=== PATIENT | male | born 1990 | race Caucasian/White ===

== ENCOUNTER 2016-06-26 12:48 | Inpatient (IN) | payer MEDICAID ==
[~2016-06-26] VITALS: Ht 167.6 cm; Wt 70.0 kg
[2016-06-26 14:54] LABS: BASOPHILS % (AUTO) 0.5 % (0.0-2.0); EOSINOPHILS % (AUTO) 3.7 % (1.0-6.0); HEMATOCRIT 48.7 % (41-53); HEMOGLOBIN 15.8 g/dL (13.5-17.5); LYMPHOCYTES # (AUTO) 2.1 K/uL (1.0-4.8); LYMPHOCYTES % (AUTO) 21.9 % (22.0-44.0); MEAN CORPUSCULAR HGB CONC 32.4 G/dL (31.0-37.0); MEAN CORPUSCULAR VOLUME 93 fL (80-100); MONOCYTES # (AUTO) 0.7 K/uL (0.1-1.0); NEUTROPHILS # (AUTO) 6.2 K/uL (1.8-7.7); NEUTROPHILS % (AUTO) 65.9 % (40.0-70.0); PLATELET COUNT (AUTO) 242 K/uL (150-450); RED BLOOD CELL COUNT(AUTO) 5.26 MIL/uL (4.50-5.90); RED CELL DISTRIBUTION WIDTH 14.5 % (11.5-14.5); WHITE BLOOD COUNT (AUTO) 9.4 K/uL (4.5-11.0)
[2016-06-26 15:06] LABS: ANION GAP 9 mmol/L (8-16); CALCIUM, TOTAL 8.8 mg/dL (8.8-10.5); CARBON DIOXIDE 29 mmol/L (22-29); CHLORIDE 104 mmol/L (98-107); CREATININE 0.81 mg/dL (0.60-1.30); GLOMERULAR FILTR. RATE CALC > 60 mL/min (>60); POTASSIUM 4.7 mmol/L (3.5-5.1); SODIUM SERUM 142 mmol/L (136-145); UREA NITROGEN, BLOOD 13 mg/dL (7-18)
[2016-06-26 15:11] LABS: ALANINE AMINOTRANSFERASE 24 U/L (12-78); ALBUMIN 3.9 g/dL (3.4-5.0); ASPARTATE AMINOTRANSFERASE 16 U/L (15-37); BILIRUBIN,TOTAL 0.3 mg/dL (0.1-1.0); TOTAL PROTEIN, SERUM 8.3 g/dL (6.4-8.2)
[2016-06-26] MEDS ORDERED: LORazepam 2 MG TABLET PO ONE (18:00)
[2016-06-26] MEDS ORDERED: HALOPERIDOL 5 MG TABLET PO ONE (18:00)
[2016-06-27] MEDS ORDERED: IBUPROFEN 600 MG TABLET PO PRN (08:00)
[2016-06-27] MEDS ORDERED: ONDANSETRON HCL 4 MG TABLET PO PRN (08:00)
[2016-06-27] MEDS ORDERED: ALBUTEROL SULFATE HFA 90 MCG/PUFF 8 GM INHALER IH PRN (08:00)
[2016-06-27] MEDS ORDERED: MAG HYDROX/AL HYDROX/SIMETH ES 30 ML SUSPENSION UDCUP PO PRN (08:00)
[2016-06-27] MEDS ORDERED: CloNIDine HCL 0.1 MG TABLET PO PRN (08:00)
[2016-06-27] MEDS ORDERED: ACETAMINOPHEN 325 MG TABLET PO PRN (08:00)
[2016-06-27] MEDS ORDERED: PETROLATUM,WHITE 71 GM JELLY TP PRN (08:00)
[2016-06-27] MEDS ORDERED: MAGNESIUM HYDROXIDE SUSPENSION 30 ML UDCUP PO PRN (08:00)
[2016-06-27] MEDS ORDERED: BACITRACIN 28.4 GM OINTMENT TP PRN (08:00)
[2016-06-27] MEDS ORDERED: BENZOCAINE/MENTHOL LOZENGE [8 LOZENGES/PACKET] MM PRN (08:00)
[2016-06-27] MEDS ORDERED: LOPERAMIDE HCL 2 MG CAPSULE PO PRN (08:00)
[2016-06-27] MEDS: LORazepam 2 MG TABLET PO PRN (13:35)
[2016-06-27] MEDS: HALOPERIDOL 5 MG TABLET PO PRN (13:35)
[2016-06-27 13:38] VITALS: BP 123/64
[2016-06-27 18:30] VITALS: BP 98/72
[2016-06-28 09:28] VITALS: BP 139/73
[2016-06-28] MEDS: RisperiDONE 3 MG TABLET PO SCH (20:00)
[2016-06-28] MEDS: LORazepam 2 MG TABLET PO PRN (20:00)
[2016-06-28 20:49] LABS: APPEARANCE,URINE CLEAR (CLEAR); GLUCOSE, URINE (UA) NEGATIVE (NEGATIVE); KETONES,URINE NEGATIVE (NEGATIVE); LEUKOCYTE ESTERASE ,URINE NEGATIVE (NEGATIVE); OCCULT BLOOD,URINE NEGATIVE (NEGATIVE); PH,URINE 6.5 (5.0-8.0); PROTEIN,URINE NEGATIVE (NEGATIVE)
[2016-06-28 20:51] LABS: ADD UA MICROSCOPIC NO
[2016-06-28] MEDS: ZOLPIDEM TARTRATE 10 MG TABLET PO PRN (21:31)
[2016-06-28 21:52] VITALS: BP 110/55
[2016-06-29 07:07] LABS: CHOL/HDL RATIO 1.9 (4.2-7.3)
[2016-06-29] MEDS: LORazepam 2 MG TABLET PO PRN ×2 (07:53→16:13)
[2016-06-29 08:01] VITALS: BP 130/83
[2016-06-29] MEDS: DIVALPROEX SODIUM 500 MG DR TABLET PO SCH ×2 (08:02→17:00)
[2016-06-29] MEDS: NICOTINE 21 MG/24 HOUR PATCH TD SCH (08:02)
[2016-06-29] MEDS: RisperiDONE 3 MG TABLET PO SCH ×2 (08:02→20:27)
[2016-06-29] MEDS: HALOPERIDOL 5 MG TABLET PO PRN (16:13)
[2016-06-29 18:12] VITALS: BP 126/76
[2016-06-30 08:02] VITALS: BP 106/67
[2016-06-30] MEDS: DIVALPROEX SODIUM 500 MG DR TABLET PO SCH ×2 (08:19→16:42)
[2016-06-30] MEDS: RisperiDONE 3 MG TABLET PO SCH ×2 (08:19→20:15)
[2016-06-30] MEDS: HALOPERIDOL 5 MG TABLET PO PRN (08:20)
[2016-06-30] MEDS: LORazepam 2 MG TABLET PO PRN (08:20)
[2016-06-30] MEDS: NICOTINE 21 MG/24 HOUR PATCH TD SCH (08:20)
[2016-06-30] MEDS ORDERED: HALOPERIDOL LACTATE 5 MG/ML VIAL IM ONE (08:30)
[2016-06-30] MEDS ORDERED: DiphenhydrAMINE HCL 50 MG/ML VIAL IM ONE (08:30)
[2016-06-30] MEDS ORDERED: LORazepam 2 MG/ML VIAL IM ONE (08:30)
[2016-06-30] MEDS ORDERED: LORazepam 2 MG/ML VIAL ONE (08:34)
[2016-06-30] MEDS ORDERED: DiphenhydrAMINE HCL 50 MG/ML VIAL ONE (08:35)
[2016-06-30] MEDS ORDERED: HALOPERIDOL LACTATE 5 MG/ML VIAL ONE (08:35)
[2016-06-30 18:31] VITALS: BP 122/70
[2016-06-30] MEDS: ZOLPIDEM TARTRATE 10 MG TABLET PO PRN (20:15)
[2016-07-01 08:29] VITALS: BP 116/56
[2016-07-01] MEDS: RisperiDONE 3 MG TABLET PO SCH (08:36)
[2016-07-01] MEDS: DIVALPROEX SODIUM 500 MG DR TABLET PO SCH (08:36)
[2016-07-01] MEDS: NICOTINE 21 MG/24 HOUR PATCH TD SCH (08:37)
[2016-07-01] MEDS ORDERED: DIVA500T35 PO (09:57)
[2016-07-01] MEDS ORDERED: RISP3 PO (09:57)
== END 2016-07-01 10:50 | disposition home or self-care (01) | DRG 751 ==
LOC: EMS 12:51 → AHU 06-27 07:32 → 3EI 06-27 18:29 → 3EC 06-30 09:29
PROVIDERS: ADMIT Psychiatry & Neurology Psychiatry; ATTEND Psychiatry & Neurology Psychiatry
DX: F29 Unspecified psychosis not due to a substance or known physiological condition (principal); R45.851 Suicidal ideations; F15.10 Other stimulant abuse, uncomplicated; F14.90 Cocaine use, unspecified, uncomplicated; F19.10 Other psychoactive substance abuse, uncomplicated; F12.90 Cannabis use, unspecified, uncomplicated; K59.00 Constipation, unspecified; Z79.899 Other long term (current) drug therapy; Z72.89 Other problems related to lifestyle; Z71.41 Alcohol abuse counseling and surveillance of alcoholic; Z71.51 Drug abuse counseling and surveillance of drug abuser; Z81.8 Family history of other mental and behavioral disorders; F17.210 Nicotine dependence, cigarettes, uncomplicated; Z71.6 Tobacco abuse counseling
CPT/HCPCS: 99285; G0480; J1200; J1630; J2060